=== PATIENT | male | born 1970 | race Caucasian/White ===

== ENCOUNTER 2022-09-28 17:31 | Inpatient (IN) | payer MEDICAID, SELFPAY ==
[2022-09-28] VITALS (8 sets, daily range): BP systolic 131–192; BP diastolic 57–110; PULSE 64–85; RESP 14–20; TEMP 36.8–38.2; O2SAT 94–98; BMI 32.6
--- NOTE | ~2022-09-28 | CT_ITS ---
EXAMINATION: CT ABDOMEN AND PELVIS WITH CONTRAST CLINICAL INFORMATION: Right flank pain, leukocytosis COMPARISON: None TECHNIQUE: Multidetector volumetric images were obtained from the superior aspect of the liver through the pubic symphysis following administration 85 mL of Omnipaque 350 intravenous contrast. Sagittal and coronal reformatted images were obtained on the technologist's workstation. Oral contrast: No This CT examination was performed using dose optimization techniques as appropriate, variously including the following: *Automated exposure control *Adjustment of mA and/or kV according to patient size (this includes techniques or standardized protocols for targeted exams where dose is matched to indication/reason for exam; i.e. extremities or head) *Use of iterative reconstruction technique DLP: 774 mGy-cm FINDINGS: LUNG BASES: Minor scarring or discoid atelectasis right base. More medially, there is more focal peribronchial consolidation which is nonspecific and may be chronic as well. Difficult to exclude minor pneumonia. LIVER, GALLBLADDER, AND BILIARY TREE: Changes of diffuse hepatic steatosis. No discrete lesion. Hepatic and portal vessels patent. No biliary ductal dilatation. The gallbladder is unremarkable with no evidence of radiopaque gallstones, gallbladder wall thickening, or obvious pericholecystic inflammatory changes. PANCREAS: Unremarkable. SPLEEN: Unremarkable. ADRENAL GLANDS: Unremarkable. KIDNEYS AND URETERS: The kidneys are normal in size, shape, and attenuation. No hydronephrosis, hydroureter, or calculi seen. No perinephric stranding. BLADDER: Unremarkable. GASTROINTESTINAL TRACT: Acute inflammatory changes at the level the appendix with hyperenhancement of the appendiceal wall, periappendiceal inflammatory changes and wall thickening or dilatation. No appendicolith or evidence for any perforation. No bowel abnormality otherwise. No free fluid. ABDOMINAL WALL: No significant hernia is appreciated. LYMPH NODES: Normal. VASCULAR: Unremarkable. PELVIC VISCERA: Unremarkable. OSSEOUS STRUCTURES: Unremarkable. CT/CT abdomen pelvis w IV con IMPRESSION: Acute uncomplicated appendicitis. Diffuse hepatic steatosis. Right lower lobe changes as above. Fleischner guidelines were followed.
[2022-09-28 18:06] LABS: Hematocrit 44.7 % (42.0-52.0); Hemoglobin 15.1 g/dl (14.0-18.0); Mean Corpuscular HGB Conc 33.8 g/dl (31.0-36.0); Mean Corpuscular Hemoglobin 28.3 pg (27.0-33.0); Mean Corpuscular Volume 83.9 fL (80.0-98.0); Mean Platelet Volume 9.5 fL (9.4-12.4); Platelet Count 293 X10*3/uL (160-400); Red Blood Count 5.33 X10*6/uL (4.60-5.80); Red Cell Distribution Width 12.9 % (11.0-16.0)
--- OUTSIDE RECORDS SUMMARY | 2022-09-28 18:07 | XMS_ITS ---
:1970 Author Allergies Code Code System Name Reaction Severity Status Onset NKDA ? Medications No Medications Reported Problems Name Status Onset Date Source ? Urinary Symptoms Active ? Encounter Glycosuria Active ? Encounter Procedures None recorded. Results Lab Results None recorded. Past Encounters None recorded. Social History Tobacco Smoking Status Never Smoker Vaccine List None recorded. Plan of Care Reminders Provider Appointments None recorded. ? ? Lab None recorded. ? ? Referral None recorded. ? ? Procedures None recorded. ? ? Surgeries None recorded. ? ? Imaging None recorded. ? ? Vitals Height Weight BMI Blood Pressure 70 ft 108 kg 0.2 kg/m2 135/70 mm[Hg]
--- NOTE | 2022-09-28 18:22 | ED.GENADULT ---
HPI - General Adult General Chief complaint: Abdominal Pain Stated complaint: lower right side back pain, vomiting blood Time Seen by Provider: 09/28/22 18:22 Source: patient Mode of arrival: ambulatory Limitations: no limitations History of Present Illness HPI narrative: This is a 52-year-old male with no significant past medical history presenting to the emergency department with complaints of severe right-sided flank pain w/ radiation to abdomen that started this morning when he woke up, also associated complaints include urinary frequency and dysuria. Patient tells me this is never happened to him before. He tells me he tried going to work and the pain was so severe he could not even stand upright. He tells me the pain is sharp, 10/10. Reporting subjective fevers and chills as well as nausea. No vomiting. Patient has no history of kidney stones. Upon history taking patient appears extremely uncomfortable. Denies chest pain, shortness of breath, vomiting, hematemesis, hematochezia, weakness, headache, vision changes and dizziness. Related Data Allergies Allergy/AdvReac Type Severity Reaction Status Date / Time Unable to Assess Allergy Unverified 09/28/22 18:15 Review of Systems Review of Systems: Constitutional : No Weight loss, + Fever, + Chills, + Fatigue, + Malaise ENT/Mouth : No sore throat, No Rhinorrhea Eyes: No Eye Pain, No Swelling, No Redness Cardiovascular : No Chest Pain, No SOB, No Dyspnea on Exertion, No Orthopnea, No Edema, No Palpitations Respiratory : No Cough, No Sputum, No Wheezing Gastrointestinal : No Nausea, No Vomiting, No Diarrhea, No Constipation, No abdominal Pain, No Hematochezia, No Melena Genitourinary : + Dysuria, + Urinary Frequency, No Hematuria, Musculoskeletal : No joint pain, No Myalgias, No Joint Swelling, + flank pain Skin : No Skin Lesions, No rash Neuro : No Weakness, No Numbness, No Dizziness, No Headache Psych : No Anxiety/Panic, No Depression All other systems reviewed and are negative Yes all other systems are reviewed and are negative [facility] Past Medical History Attestation statement: The following information was validated with the patient. Source: old records reviewed and nursing notes reviewed Social History Social History Advance Directives: No Advance Directives Information Provided: No Physical Exam ED Vital Signs: Vital Signs - 24 hr 09/28/22 17:37 Temperature 100.8 F H Pulse Rate 85 Respiratory Rate 20 Blood Pressure 192/110 H Pulse Oximetry 98 Oxygen Delivery Method Room Air BMI result Body Mass Index 32.6 Patient noted to be febrile, Tylenol ordered. Patient is very hypertensive likely secondary to severe pain Appearance: Alert.? Oriented X3.? No acute distress.? Patient appears extremely uncomfortable Head: Normocephalic, atraumatic, no step-offs or deformities Eyes: Pupils equal, round and reactive to light.? ENT: Pharynx normal.? Neck: Normal inspection.? Neck supple.? CVS: Normal heart rate and rhythm.? Pulses normal.? Respiratory: No respiratory distress.? Breath sounds normal.? Abdomen: Soft and nontender.? Skin: Skin warm and dry.? Normal skin color.? Normal skin turgor.? Extremities: No lower extremity edema.? No calf ttp. 5/5 strength to bilateral upper and lower extremities Back: No midline tenderness, no C-spine tenderness, full range of motion, positive right-sided CVA tenderness Neuro: Oriented X 3.? No motor deficit.? No sensory deficit. CN 2-12 intact Course Reevaluation(s) Reevaluation #1: CBC with leukocytosis, chemistry no acute electrolyte abnormalities requiring intervention. Lactic acid negative. Patient was given fluids, levofloxacin. CT of the abdomen and pelvis showing acute appendicitis. Surgery consulted. Urine pending. Time: 20:13 Medications Administered Discontinued Medications Generic Name Dose Route Start Last Admin Trade Name Freq PRN Reason Stop Dose Admin Acetaminophen 975 mg 09/28/22 18:23 09/28/22 18:31 Acetaminophen 325 Mg Tablet PO 09/28/22 18:24 975 mg ONCE ONE Administration Sodium Chloride 2,925.66 mls @ 2,925.66 mls/hr 09/28/22 18:16 09/28/22 18:31 Ns 30 ml/kg infuse over 1 hr (2925.66 ml) 09/28/22 19:15 2,925.66 mls/hr IV Administration .Q1H STA Levofloxacin 750 mg in 150 mls @ 100 mls/hr 09/28/22 18:16 09/28/22 18:34 Levaquin IV 09/28/22 19:45 100 mls/hr ONCE ONE Administration Iohexol 100 ml 09/28/22 19:23 09/28/22 19:23 Iohexol 350 Mg/Ml 100 Ml Infus..Btl IV 09/28/22 19:24 85 ml ONCE ONE Administration Morphine Sulfate 4 mg 09/28/22 18:22 09/28/22 18:30 Morphine Sulfate 4 Mg/Ml Cartridge IVPUSH 09/28/22 18:23 4 mg ONCE ONE Administration Protocol Ondansetron HCl 4 mg 09/28/22 18:23 09/28/22 18:30 Ondansetron Hcl 4 Mg/2 Ml Vial IVPUSH 09/28/22 18:24 4 mg ONCE ONE Administration Medical Decision Making Medical Decision Making [facility] Narrative: 1814 52-year-old male presents with right-sided flank pain severe, 10/10, fevers, chills. Started this morning. Physical examination with significant right-sided CVA tenderness. Remainder of exam unremarkable. Patient is noted to be febrile, Tylenol ordered. Patient also noted to be hypertensive likely secondary to severe pain. Morphine will be ordered for pain control. Concerns for pylo or intraabdominal etiologies. Sepsis alert called immediately when patient was brought to room. Blood cultures, lactic acid, basic labs, 30 cc/kilos bolus. As well as Levaquin ordered for suspected pyelonephritis. Plan at this time labs, urine, CT of the abdomen and pelvis, pain control, Zofran for nausea, fluids. At time of patient's arrival sepsis focused exam was done. Critical Care Time Critical Care Time Critical Care Time: Yes Total Critical Care Time: 35 Attestation: I attest to this time spent taking care of the patient, obtaining history, physical, reviewing labs, imaging, speaking to my attending, speaking to specialist. Discharge Plan Discharge Clinical Impression: Acute appendicitis Patient Disposition: Admitted As Inpatient
[2022-09-28 18:29] LABS: Anion Gap 15 (12-20); Blood Urea Nitrogen 23 mg/dL (9-16); Calcium 9.7 mg/dL (8.4-10.2); Carbon Dioxide 24 mmol/L (22-29); Chloride 106 mmol/L (96-108); Creatinine Clr Calc Pharmacy 89.9; Estimated Glomerular Filt Rate > 60; Glucose Random 247 mg/dL (60-115); Lipase 37 U/L (8-78); Potassium 4.3 mmol/L (3.3-5.1); Sodium 141 mmol/L (135-145)
[2022-09-28] MEDS: Morphine Sulfate 4 MG/ML CARTRIDGE IVPUSH (18:30)
[2022-09-28] MEDS: ondansetron HCL 4 MG/2 ML VIAL IVPUSH (18:30)
[2022-09-28] MEDS: Acetaminophen 325 MG TABLET 975 MG PO (18:31)
[2022-09-28] MEDS: 0.9 % Sodium Chloride 2,925.66 ML 2925.66 ML IV (18:31)
[2022-09-28] MEDS: levoFLOXacin/D5W 750 MG/150 ML PIGGYBACK 100 MG IV (18:34)
[2022-09-28] MEDS: iohexoL 350 MG/ML 100 ML INFUS..BTL IV (19:23)
--- NOTE | 2022-09-28 20:28 | P.HPGS_ITS ---
History of Present Illness History of Present Illness Date of Service: 09/29/22 Chief complaint: acute appendicitis Narrative: Driss Hicks is a 52 year old male with complaints of abdominal pain in the right lower quadrant and flank which began yesterday morning. 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 The pain became very severe and he had the Police bring him to the emergency department. he reports a previous episode of similar pain 1 month ago which required admission to the hospital. This was treated non operatively with antibiotics and after 2 days he was discharged home on oral antibiotics. He remained pain-free until yesterday when the same pain returned. He reports fever and chills as well as nausea but denies vomiting, diarrhea, constipation, or bloody stools. Workup in the emergency department revealed an elevated WBC and CT was suggestive of acute appendicitis. He is admitted to the surgical service for further management of this recurrent acute appendicitis. Review of Systems Review of Systems: Yes all other systems are reviewed and are negative Constitutional: Constitutional: Reports chills, Reports fever(s), Denies headache(s), Denies poor appetite and Denies weakness ENT: Denies headache(s) Cardiovascular: Cardiovascular: Denies chest pain, Denies irregular heart rhythm, Denies palpitations and Denies dyspnea Respiratory: Respiratory: Denies cough, Denies excessive phlegm production and Denies dyspnea Gastrointestinal: Gastrointestinal: Reports abdominal pain, Denies bloating, Denies change in bowel habits, Denies constipation, Denies heartburn, Denies diarrhea, Reports nausea and Denies vomiting Genitourinary: Genitourinary: Denies difficulty urinating and Denies urinary frequency Musculoskeletal: Musculoskeletal: Denies back pain, Denies muscle weakness and Denies numbness Integumentary/Breasts: Skin/Breast: Denies changing lesions and Denies unusual bruising Neurologic: Denies headache(s), Denies numbness, Denies paresthesias and Denies weakness Psychiatric: Psychiatric: Denies anxiety and Denies depression Endocrine: Endocrine: Denies palpitations Hematologic/Lymphatic: Hematologic/Lymphatic: Denies lymphadenopathy [facility] Past Medical History Medical History Diabetes mellitus type 2 in nonobese Hypertension Social History Social History Alcohol intake: never Smoked in Last 30 Days: No Use of substances other than those prescribed or required for medical reasons: No Advance Directives: No Advance Directives Information Provided: No Meds Allergies Allergy/AdvReac Type Severity Reaction Status Date / Time Unable to Assess Allergy Unverified 09/28/22 18:15 Home Medications Medication Instructions Recorded Confirmed Last Taken Type aspirin 81 mg tablet,delayed 1 tab PO DAILY 09/29/22 09/29/22 Unknown History release losartan 25 mg tablet 1 tab PO DAILY 09/29/22 Unknown History metformin 500 mg tablet 1 tab PO BID 09/29/22 Unknown History Physical Exam Vital Signs: Vital Signs: Last Vital Signs Temp 100.8 F H 09/28/22 17:37 Pulse 85 09/28/22 17:37 Resp 20 09/28/22 17:37 BP 192/110 H 09/28/22 17:37 Pulse Ox 98 09/28/22 17:37 O2 Del Method 09/28/22 17:37 BMI result Body Mass Index 32.6 Const: General: cooperative and no acute distress Nutritional Appearance: w ell nourished Orientation/consciousness: patient oriented x3 Limitations: no limitations HEENT: Head: Yes normocephalic and Yes atraumatic Ears: hearing grossly normal bilaterally Resp: Effort & Inspection: normal respiratory effort, no audible wheezes, no cough and no respiratory distress Cardio: Jugular venous distension: no JVD GI: Inspection: Yes normal to inspection Palpation (GI): Soft to palpation, Tenderness to palpation present (GI) in the RLQ and at McBurney's point, no guarding and not rigid Percussion: Yes normal to percussion Auscultation: normal bowel sounds Rectal Exam - Male: Yes deferred Skin: Other: Warm, dry, no rash Neuro: General: patient oriented x3 Extrem: General: Yes no clubbing, cyanosis or edema Results Results Labs: Short CBC 09/28/22 Range/Units 18:01 WBC 16.0 H (4.8-10.8) X10*3/uL Hgb 15.1 (14.0-18.0) g/dl Hct 44.7 (42.0-52.0) % Plt Count 293 (160-400) X10*3/uL BMP 09/28/22 18:01 Sodium 141 Potassium 4.3 Chloride 106 Carbon Dioxide 24 BUN 23 H Creatinine 1.10 Calcium 9.7 Assessment and Plan (1) Acute appendicitis: Status: Acute Plan 52-year-old male presenting with complaints of right lower quadrant pain. He was previously diagnosed with acute appendicitis and treated non operatively with antibiotics. He reports similar symptoms this time and does feel improved after antibiotics. Because of the recurring nature of the symptoms though, I would recommend proceeding to a laparoscopic or possible open appendectomy. I reviewed the procedure, risks, and alternatives of laparoscopic or possible open appendectomy he gives his full consent. He will be added onto the operative schedule for today. Time Spent With Patient Time: Total time managing care of this patient today ____ minutes. Quality Stroke Does the patient have a stroke diagnosis?: No VTE Prior VTE?: No VTE Risk Level:: Surgical - moderate VTE Device Contraindication: N/A - Device Ordered VTE Drug Contraindication: Treatment Not Indicated Procedures Date of Service Date of Service: 09/29/22
[2022-09-28] MEDS: Piperacillin Sodium/Tazobactam 3.375 GM in 0.9 % Sodium Chloride 50 ML IV (20:48)
[2022-09-28] MEDS: diphenhydrAMINE HCL 50 MG/ML VIAL 25 MG IVPUSH (21:15)
[2022-09-28] MEDS: Acetaminophen 1,000 MG/100 ML PIGGYBACK 400 MG IV (21:16)
--- NOTE | 2022-09-28 21:16 | PC.NURSE ---
Pt complaining of itchiness and hives after zosyn administration. Provider aware and benadryl administered. Will continue to monitor.
[2022-09-28 21:29] LABS: Appearance Urine Clear; Color Urine Yellow; Glucose Urine UA 500 mg/dL (Negative); Leukocyte Esterase Urine Negative (Negative); Nitrite Urine Negative (Negative); PH 6.5 (5.0-9.0); Specific Gravity - Urine >= 1.030 (1.005-1.025); Urine Blood Negative (Negative); Urine Ketones Negative (Negative); Urine Protein Negative (Neg-Trace)
[2022-09-28] MEDS: metroNIDAZOLE/NS 500 MG/100 ML PIGGYBACK 100 MG IV (21:53)
[2022-09-28 22:31] LABS: Lactic Acid 0.9 mmol/L (0.5-2.0)
[2022-09-28 22:33] LABS: COVID-19 Test Negative (Negative)
[2022-09-28] MEDS: Dextrose 5 % and Lactated Ring 1,000 ML 125 ML IVCONT (23:35)
[2022-09-29] VITALS (9 sets, daily range): BP systolic 123–167; BP diastolic 63–91; PULSE 53–82; RESP 12–20; TEMP 36.3–37.4; O2SAT 90–97; BMI 37.3
[2022-09-29] MEDS: Acetaminophen 1,000 MG/100 ML PIGGYBACK 400 MG IV ×2 (02:07→08:28)
--- NOTE | 2022-09-29 02:11 | PC.NURSE ---
Pt resting comfortably at this time, stated he feels much better. Pt is aware that he is now NPO. Pt complains of no pain at this time
[2022-09-29] MEDS: metroNIDAZOLE/NS 500 MG/100 ML PIGGYBACK 100 MG IV (05:06)
--- NOTE | 2022-09-29 05:14 | PC.NURSE ---
Pt asleep comfortably. D5LR delayed due to previous fluids running late. I called pharmacy to have the maintenance fluid schedule updated to reflect accurate times.
--- NOTE | 2022-09-29 08:17 | PHA.MEDREC ---
Pharmacy Consult ? Medication Reconciliation Pharmacy has completed the medication reconciliation.
--- NOTE | 2022-09-29 08:19 | PC.NURSE ---
patient a/ox4 . pearrla . heart rate regular at 58 beats per minute . breathing even and unlabored lungs clear throughout . skin warm and dry . abdomen distended . rebound tenderness noted right side / flank area .pain level 2 out of 10 patient ambulated to bathroom by self . patient remains NPO . patient aware of plan of care for surgery today .
--- NOTE | 2022-09-29 08:23 | PC.NURSE ---
this rn confirmed with pharmacist (nilam) about apap 1gm dosing within 24hr. 1gm dosing is ok to give and rn needs to re-evaluate for next dosing.
[2022-09-29 08:30] LABS: MANUAL DIFF FLAG NO
[2022-09-29] MEDS: 0.9 % Sodium Chloride Flush 3 ML SYRINGE IVFLUSH ×3 (08:32→20:26)
--- NOTE | 2022-09-29 08:40 | PC.NURSE ---
Report Given to OR nurse . Patient ready for transport .
[2022-09-29 08:44] LABS: Basophils Percent Auto 0.3 % (0-2); Eosinophils Absolute Auto 0.2 X10*3/uL (0.0-0.4); Eosinophils Percent Auto 2.3 % (0-4); Hematocrit 43.2 % (42.0-52.0); Hemoglobin 14.2 g/dl (14.0-18.0); Imm Gran Abs Auto 0.03 X10*3/uL (0.00-0.03); Imm Gran Pct Auto 0.3 % (0.0-0.4); Lymphocytes Absolute Auto 2.6 X10*3/uL (1.2-4.9); Lymphocytes Percent Auto 29.2 % (20-40); Mean Corpuscular HGB Conc 32.9 g/dl (31.0-36.0); Mean Corpuscular Volume 85.2 fL (80.0-98.0); Mean Platelet Volume 9.3 fL (9.4-12.4); Monocytes Absolute Auto 0.8 X10*3/uL (0.1-1.2); Monocytes Percent Auto 8.6 % (2-11); Neutrophils Absolute Auto 5.2 x10*3/uL (2.0-8.3); Neutrophils Percent Auto 59.3 % (45-73); Platelet Count 246 X10*3/uL (160-400); Red Blood Count 5.07 X10*6/uL (4.60-5.80); Red Cell Distribution Width 13.1 % (11.0-16.0); White Blood Count 8.8 X10*3/uL (4.8-10.8)
[2022-09-29] MEDS: Dextrose 5 % and Lactated Ring 1,000 ML 125 ML IVCONT (08:44)
--- NOTE | 2022-09-29 08:59 | HO.ANESPROP2 ---
[facility] Active Problems Active Problems: All Active Problems (Updated 09/29/22 @ 07:52 by Gallo Grant MD) Hypertension (Acute) Diabetes mellitus type 2 in nonobese (Acute) Acute appendicitis (Acute) Past Medical History Medical History Diabetes mellitus type 2 in nonobese Hypertension Family History Family history of problems with anesthesia: No Surgical History History of Problems with Anesthesia: No Social History Social History Alcohol intake: never Smoked in Last 30 Days: No Use of substances other than those prescribed or required for medical reasons: No Advance Directives: No Advance Directives Information Provided: No Meds Allergies Allergy/AdvReac Type Severity Reaction Status Date / Time piperacillin Allergy Mild Rash Verified 09/29/22 07:58 Zosyn Allergy Mild Rash Uncoded 09/29/22 07:57 Active Medications: Current Medications Hydromorphone HCl (Hydromorphone Hcl 0.5 Mg/0.5 Ml Syringe) 0.5 mg IVPUSH Q3H PRN; Protocol PRN Reason: Pain, Severe (Pain Scale 7-10) Acetaminophen (Ofirmev) 1,000 mg in 100 mls @ 400 mls/hr IV Q6H [facility] Stop: 09/29/22 14:44 Last Admin: 09/29/22 08:28 Dose: 400 mls/hr Levofloxacin (Levaquin) 500 mg in 100 mls @ 100 mls/hr IV Q24H TREY Metronidazole (Flagyl) 500 mg in 100 mls @ 100 mls/hr IV Q8H [facility] Last Infusion: 09/29/22 07:20 Dose: Infused Dextrose/Lactated Ringer's (D5lr) 1,000 mls @ 125 mls/hr IVCONT .Q8H [facility] Last Admin: 09/29/22 08:44 Dose: 125 mls/hr Ondansetron HCl (Ondansetron Hcl 4 Mg/2 Ml Vial) 4 mg IVPUSH QID PRN PRN Reason: Nausea Oxycodone HCl (Oxycodone Hcl Immed Release 5 Mg Tablet) 5 mg PO Q6H PRN PRN Reason: Pain, Moderate (Pain Scale 4-6 Sodium Chloride (0.9 % Sodium Chloride Flush 3 Ml Syringe) 3 ml IVFLUSH QSHIFT TREY Last Admin: 09/29/22 08:32 Dose: 3 ml Zolpidem Tartrate (Zolpidem Tartrate 5 Mg Tablet) 5 mg PO BEDTIME PRN PRN Reason: Insomnia Home Medications Medication Instructions Recorded Confirmed Last Taken Type losartan 25 mg tablet 1 tab PO DAILY 09/29/22 09/29/22 09/28/22 History metformin 500 mg tablet 1 tab PO BID 09/29/22 09/29/22 09/28/22 History Exam Exam Date and Time: September 29, 2022 0859 Height,Weight and Vital Signs: Height 5 ft 8 in Weight 97.522 kg Last Vital Signs Temp 97.8 F 09/29/22 07:20 Pulse 57 09/29/22 07:20 Resp 16 09/29/22 07:20 BP 133/63 09/29/22 07:20 Pulse Ox 94 09/29/22 07:20 O2 Del Method 09/29/22 07:20 Pertinent Lab Results Pertinent Lab Results: Laboratory Tests 09/28/22 09/28/22 09/28/22 18:01 18:01 18:29 WBC 16.0 H RBC 5.33 Hgb 15.1 Hct 44.7 MCV 83.9 MCH 28.3 MCHC 33.8 RDW 12.9 Plt Count 293 MPV 9.5 Immature Gran % (Auto) Neut % (Auto) Lymph % (Auto) [place] % (Auto) Eos % (Auto) Baso % (Auto) Lymph # (Auto) Parmer # (Auto) Eos # (Auto) Baso # (Auto) Abs Immat Gran (auto) Absolute Neuts (auto) Absolute Nucleated RBC 0.000 Nucleated RBC % (auto) 0.0 Sodium 141 Potassium 4.3 Chloride 106 Carbon Dioxide 24 Anion Gap 15 BUN 23 H Creatinine 1.10 Estim Creat Clear Calc 89.9 Estimated GFR > 60 Random Glucose 247 H Lactic Acid 2.0 Calcium 9.7 Lipase 37 Urine Color Urine Appearance Urine pH Ur Specific [place] Urine Protein Urine Glucose (UA) Urine Ketones Urine Blood Urine Nitrite Ur Leukocyte Esterase COVID-19 (DIANNE) COVID-19 Clin Com 09/28/22 09/28/22 09/28/22 21:10 21:19 22:16 WBC RBC Hgb Hct MCV MCH MCHC RDW Plt Count MPV Immature Gran % (Auto) Neut % (Auto) Lymph % (Auto) [place] % (Auto) Eos % (Auto) Baso % (Auto) Lymph # (Auto) Parmer # (Auto) Eos # (Auto) Baso # (Auto) Abs Immat Gran (auto) Absolute Neuts (auto) Absolute Nucleated RBC Nucleated RBC % (auto) Sodium Potassium Chloride Carbon Dioxide Anion Gap BUN Creatinine Estim Creat Clear Calc Estimated GFR Random Glucose Lactic Acid 0.9 Calcium Lipase Urine Color Yellow Urine Appearance Clear Urine pH 6.5 Ur Specific [place] >= 1.030 H Urine Protein Negative Urine Glucose (UA) 500 H Urine Ketones Negative Urine Blood Negative Urine Nitrite Negative Ur Leukocyte Esterase Negative COVID-19 (DIANNE) Negative COVID-19 Tykli Com See Note 09/29/22 08:25 WBC 8.8 RBC 5.07 Hgb 14.2 Hct 43.2 MCV 85.2 MCH 28.0 MCHC 32.9 RDW 13.1 Plt Count 246 MPV 9.3 L Immature Gran % (Auto) 0.3 Neut % (Auto) 59.3 Lymph % (Auto) 29.2 [place]mer % (Auto) 8.6 Eos % (Auto) 2.3 Baso % (Auto) 0.3 Lymph # (Auto) 2.6 [place]mer # (Auto) 0.8 Eos # (Auto) 0.2 Baso # (Auto) 0.0 Abs Immat Gran (auto) 0.03 Absolute Neuts (auto) 5.2 Absolute Nucleated RBC 0.000 Nucleated RBC % (auto) 0.0 Sodium Potassium Chloride Carbon Dioxide Anion Gap BUN Creatinine Estim Creat Clear Calc Estimated GFR Random Glucose Lactic Acid Calcium Lipase Urine Color Urine Appearance Urine pH Ur Specific [place] Urine Protein Urine Glucose (UA) Urine Ketones Urine Blood Urine Nitrite Ur Leukocyte Esterase COVID-19 (DIANNE) COVID-19 Clin Com Airway Mallampati Class: II TM Dist: >3cm Neck ROM: Full Assessment and Plan Assessment Anesthesia Assessment: Anesthesia Plan Discussed and Chart Reviewed Final Anesthetic Review Family History of Problems with Anesthesia: No History of Problems with Anesthesia: No NPO: Yes ASA Class: II and Emergency Final Preanesthetic Review: No Changes in Pt Med Stat, Meds/Allgs Chart Reviewed, Consent Obtained/Reviewed and Anes Risks/Benef Reviewed Patient Risk: Intermediate Procedure Risk: Low Anesthetic Plan Anesthetic Plan: GA Disposition: Standard PACU
--- NOTE | 2022-09-29 09:01 | PC.NURSE ---
Report given to Junior DeL eón . patient aware of plan of care to transport after surgery to floor .
--- NOTE | 2022-09-29 10:14 | W.PM.OPN ---
Operative Note Operative Note Date of Service: 09/29/22 Narrative: Preoperative diagnosis: Acute appendicitis Postoperative diagnosis: Same Procedure: Laparoscopic appendectomy Surgeon: Gallo Grant MD Air Conditioning Engineer:none Anesthesia: General endotracheal Indications for procedure:52 year old male with right lower quadrant pain found to have tenderness in the RLQ, elevated WBC and CT findings consistent with acute appendicitis Operative findings: acute appendicitis with significant surrounding phlegmon but without perforation or abscess. Small amount of turbid fluid was identified. Specimen:appendix Estimated blood loss:2 mls Complications: none Procedure details: Patient was brought to the OR and placed in a supine position. After administering general anesthesia the patient's abdomen was prepped with ChloraPrep and draped in a sterile fashion. A surgical time-out was called and consent confirmed. Patient received preoperative antibiotics and Venodyne boots were in place. Local anesthesia consisting of 0.75% Sensorcaine with epinephrine was infiltrated in periumbilical region. A 5 mm incision was made below the umbilicus and carried down through subcutaneous tissue. A Veress needle was then inserted while elevating abdominal cavity with towel clips. After a positive drop test the abdomen was insufflated to a pressure of 15 mm of mercury. The Veress needle was removed and a 5 mm trocar inserted. The camera was then inserted in the abdomen explored. A 2nd 5 mm trocars placed in the lower midline. A 12 mm trocar was then placed in the left lower quadrant. The patient was then placed in a Trendelenburg position and rotated to the left. The appendix was identified in the right lower quadrant and brought up using blunt dissecting clamps. The mesentery of the appendix was then divided using the LigaSure. The appendiceal artery was cauterized and divided using the LigaSure. Dissection was continued down to the base of the cecum. An Endo-SURJIT stapler with a purple reload was then used to divide the appendix at the base with the cecum. The appendix was then placed in Endo-Catch bag and brought out through the left lower quadrant incision. The abdomen was then irrigated with saline solution and suctioned dry. Wounds were checked for hemostasis. CO2 was then evacuated from the abdominal cavity and all trocars removed. Fascia was closed in the left lower quadrant incision using a [id number] 0 Polysorb suture. Skin was closed at all incisions using a subcuticular 4-0 Polysorb suture. Steri-Strips 2 x 2 gauze and Tegaderm were then applied. The patient tolerated the procedure well. Sponge, instrument, needle counts reported as correct. The patient was transferred to PACU in stable condition.
[2022-09-29 11:51] LABS: Glucose, Whole Blood 171 mg/dL (60-115)
[2022-09-29] MEDS: HYDROmorphone HCl 0.5 MG/0.5 ML SYRINGE IVPUSH ×3 (12:51→20:25)
[2022-09-29] MEDS: oxyCODONE HCl Immed Release 5 MG TABLET PO (14:46)
[2022-09-29 16:22] LABS: Glucose, Whole Blood 239 mg/dL (60-115)
[2022-09-29 19:26] LABS: Glucose, Whole Blood 238 mg/dL (60-115)
[2022-09-30] MEDS: oxyCODONE HCl Immed Release 5 MG TABLET PO ×2 (01:00→11:39)
[2022-09-30 04:00] VITALS: BP 137/73; PULSE 66; RESP 17; TEMP 36.6; O2SAT 94
[2022-09-30 07:19] VITALS: BP 135/65; PULSE 60; RESP 18; TEMP 35.9; O2SAT 95
[2022-09-30] MEDS: HYDROmorphone HCl 0.5 MG/0.5 ML SYRINGE IVPUSH ×2 (07:26→15:05)
[2022-09-30] MEDS: 0.9 % Sodium Chloride Flush 3 ML SYRINGE IVFLUSH ×3 (07:26→21:13)
[2022-09-30 07:32] LABS: Glucose, Whole Blood 145 mg/dL (60-115)
[2022-09-30] MEDS: Losartan Potassium 25 MG TABLET PO (08:51)
[2022-09-30] MEDS: metFORMIN HCl 500 MG TABLET PO ×2 (08:51→21:13)
--- NOTE | 2022-09-30 10:29 | HO.POSTANES ---
Post Anesthesia Evaluation Post Anesthesia Evaluation Vital Signs: Vital Signs Temp Pulse Resp BP Pulse Ox O2 Del Method 09/30/22 07:19 96.6 F L 60 18 135/65 95 Room Air 09/30/22 04:00 97.9 F 66 17 137/73 94 Room Air Anesthesia: General Endotracheal-GETA Mental Status: Awake Pain Control: Satisfactory Nausea/Vomiting: None Hydration: Adequate Anesthesia-Related Issues: No Anes. Related Issues
--- NOTE | 2022-09-30 10:34 | P.PNGS_ITS ---
Subjective Subjective Date of Service: 09/30/22 Interval history: Feels much better. Has some mild incisional pain but comfortable with analgesics. Tolerating solid diet. Wants to go home but also lives in [place] and will be driving himself. Physical Exam Vital Signs: Vital Signs: Last Vital Signs Temp 96.6 F L 09/30/22 07:19 Pulse 60 09/30/22 07:19 Resp 18 09/30/22 07:19 BP 135/65 09/30/22 07:19 Pulse Ox 95 09/30/22 07:19 O2 Del Method 09/30/22 07:19 O2 Flow Rate 2 09/29/22 11:00 BMI result Body Mass Index 37.3 Const: General: comfortable, no acute distress and alert O rientation/consciousness: patient oriented x3 Resp: Effort & Inspection: normal respiratory effort GI: Inspection: No distended and Yes incision (dressings c/d/i) Skin: General skin exam: no rashes or lesions noted Neuro: General: patient oriented x3 and moves all extremities Extrem: General: Yes no clubbing, cyanosis or edema Objective Data Active Medications Dextrose (Dextrose 50 % 25 Gm/50 Ml Syringe) 25 gm IVPUSH Q15M PRN; Protocol PRN Reason: per Hypoglycemia Standing Ord. Glucose (Glucose Gel 15 Gm Gel..Gram.) 15 gm PO Q15M PRN; Protocol PRN Reason: per Hypoglycemia Standing Ord. Hydromorphone HCl (Hydromorphone Hcl 0.5 Mg/0.5 Ml Syringe) 0.5 mg IVPUSH Q3H PRN; Protocol PRN Reason: Pain, Severe (Pain Scale 7-10) Last Admin: 09/30/22 07:26 Dose: 0.5 mg Documented By: BUBBA Insulin Human Lispro (Insulin Lispro 100 Unit/Ml 3 Ml Vial) 0 unit SUBCUT QIDACHS [facility]; Protocol Stop: 09/30/22 11:31 Last Admin: 09/30/22 07:20 Dose: Not Given Documented By: BUBBA Non-Admin Reason: Patient Refused Losartan Potassium (Losartan Potassium 25 Mg Tablet) 25 mg PO DAILY [facility]; Trevor col Last Admin: 09/30/22 08:51 Dose: 25 mg Documented By: BUBBA Metformin HCl (Metformin Hcl 500 Mg Tablet) 500 mg PO BID [facility] Last Admin: 09/30/22 08:51 Dose: 500 mg Documented By: BUBBA Ondansetron HCl (Ondansetron Hcl 4 Mg/2 Ml Vial) 4 mg IVPUSH QID PRN PRN Reason: Nausea Oxycodone HCl (Oxycodone Hcl Immed Release 5 Mg Tablet) 5 mg PO Q6H PRN PRN Reason: Pain, Moderate (Pain Scale 4-6 Last Admin: 09/30/22 01:00 Dose: 5 mg Documented By: SAURABHORALCal Sodium Chloride (0.9 % Sodium Chloride Flush 3 Ml Syringe) 3 ml IVFLUSH QSHIFT [facility] Last Admin: 09/30/22 07:26 Dose: 3 ml Documented By: BUBBA Zolpidem Tartrate (Zolpidem Tartrate 5 Mg Tablet) 5 mg PO BEDTIME PRN PRN Reason: Insomnia Labs CBC & Chem 7: 09/29/22 08:25 09/28/22 18:01 Labs: Laboratory Results - last 24 hr 09/29/22 09/29/22 09/29/22 11:47 15:46 18:50 POC Glucose 171 H 239 H 238 H 09/30/22 07:11 POC Glucose 145 H Microbiology Microbiology Results: Microbiology 09/28/22 18:33 Blood Culture - Preliminary Blood - Venous No growth after 24 hours. 09/28/22 18:29 Blood Culture - Preliminary Blood - Venous No growth after 24 hours. Procedures Date of Service Date of Service: 09/30/22 Progress Note: A&P Assessment and plan (1) Acute appendicitis: Status: Acute (2) S/P laparoscopic appendectomy: Status: Acute Plan 52 year old male admitted for acute appendicitis now POD #1 s/p lap appy. He is doing well post operatively. VSS. Abd exam benign with appropriate post op te nderness and intact dressings. He was instructed he cannot drive on narcotics and he therefore does not feel comfortable going home today. He will stay one more night inpatient as he has to drive himself home to [place]. Time Spent With Patient Time: Total time managing care of this patient today ____ minutes. Quality Stroke Does the patient have a stroke diagnosis?: No VTE Prior VTE?: No VTE Risk Level:: Surgical - moderate VTE Device Contraindication: N/A - Device Ordered VTE Drug Contraindication: Treatment Not Indicated
[2022-09-30 11:13] LABS: Glucose, Whole Blood 217 mg/dL (60-115)
--- NOTE | 2022-09-30 14:07 | MHC.CM.PN ---
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
[2022-09-30 16:14] VITALS: BP 174/81; PULSE 62; RESP 18; TEMP 36.8; O2SAT 95
[2022-09-30 16:22] LABS: Glucose, Whole Blood 134 mg/dL (60-115)
[2022-09-30 19:17] VITALS: BP 161/82; PULSE 66; RESP 14; TEMP 36.6; O2SAT 96
[2022-09-30 20:13] LABS: Glucose, Whole Blood 206 mg/dL (60-115)
[2022-10-01] MEDS: oxyCODONE HCl Immed Release 5 MG TABLET PO (02:04)
[2022-10-01 03:56] VITALS: BP 134/74; PULSE 67; RESP 16; TEMP 36.9; O2SAT 95
[2022-10-01 07:03] VITALS: BP 164/77; PULSE 72; RESP 18; TEMP 36.1; O2SAT 94
[2022-10-01 08:03] LABS: Glucose, Whole Blood 141 mg/dL (60-115)
--- NOTE | 2022-10-01 08:04 | PM.PNGS ---
Subjective Subjective Date of Service: 10/01/22 Interval history: Feels well this morning. Pain is minimal. Tolerating solid diet. OOB without difficulty. Wants to go home. Physical Exam Vital Signs: Vital Signs: Last Vital Signs Temp 96.9 F 10/01/22 07:03 Pulse 72 10/01/22 07:03 Resp 18 10/01/22 07:03 BP 164/77 H 10/01/22 07:03 Pulse Ox 94 10/01/22 07:03 O2 Del Method 10/01/22 07:03 O2 Flow Rate 2 09/29/22 11:00 BMI result Body Mass Index 37.3 Const: General: comfortable, no acute distress and alert Resp: Effort & Inspection: normal respiratory effort Cardio: Rate: regular rate GI: Inspection: No distended, Yes incision (dressings c/d/i) and Yes obesity Palpation (GI): Soft to palpation, Tenderness to palpation present (GI) (mild, left port ), no guarding and not rigid Percussion: Yes normal to percussion Skin: General skin exam: no rashes or lesions noted Neuro: General: moves all extremities Objective Data Active Medications Dextrose (Dextrose 50 % 25 Gm/50 Ml Syringe) 25 gm IVPUSH Q15M PRN; Protocol PRN Reason: per Hypoglycemia Standing Ord. Glucose (Glucose Gel 15 Gm Gel..Gram.) 15 gm PO Q15M PRN; Protocol PRN Reason: per Hypoglycemia Standing Ord. Hydromorphone HCl (Hydromorphone Hcl 0.5 Mg/0.5 Ml Syringe) 0.5 mg IVPUSH Q3H PRN; Protocol PRN Reason: Pain, Severe (Pain Scale 7-10) Last Admin: 09/30/22 15:05 Dose: 0.5 mg Losartan Potassium (Losartan Potassium 25 Mg Tablet) 25 mg PO DAILY [facility]; Protocol Last Admin: 09/30/22 08:51 Dose: 25 mg Documented By: BUBBA Metformin HCl (Metformin Hcl 500 Mg Tablet) 500 mg PO BID [facility] Last Admin: 09/30/22 21:13 Dose: 500 mg Documented By: ANJANA Ondansetron HCl (Ondansetron Hcl 4 Mg/2 Ml Vial) 4 mg IVPUSH QID PRN PRN Reason: Nausea Oxycodone HCl (Oxycodone Hcl Immed Release 5 Mg Tablet) 5 mg PO Q6H PRN PRN Reason: Pain, Moderate (Pain Scale 4-6 Last Admin: 10/01/22 02:04 Dose: 5 mg Documented By: ANJANA Sodium Chloride (0.9 % Sodium Chloride Flush 3 Ml Syringe) 3 ml IVFLUSH QSHIFT [facility] Last Admin: 09/30/22 21:13 Dose: 3 ml Documented By: ANJANA Zolpidem Tartrate (Zolpidem Tartrate 5 Mg Tablet) 5 mg PO BEDTIME PRN PRN Reason: Insomnia Labs CBC & Chem 7: 09/29/22 08:25 09/28/22 18:01 Labs: Laboratory Results - last 24 hr 09/30/22 09/30/22 09/30/22 10:59 16:16 19:21 POC Glucose 217 H 134 H 206 H 10/01/22 07:08 POC Glucose 141 H Microbiology Microbiology Results: Microbiology 09/28/22 18:33 Blood Culture - Preliminary Blood - Venous No growth after 48 hours. 09/28/22 18:29 Blood Culture - Preliminary Blood - Venous No growth after 48 hours. Procedures Date of Service Date of Service: 10/01/22 Progress Note: A&P Assessment and plan (1) S/P laparoscopic appendectomy: Status: Acute (2) Acute appendicitis: Status: Acute (3) Obesity: Status: Acute Plan 52 year old male admitted with acute appendicitis with phlegmon POD #2 s/p lap appy. He is doing well post op- comfortable, tolerating solid diet. Abd remains benign with appropriate post op tenderness and clean/intact dressings. He feels ready and is stable for discharge to home. He will follow up in [address] Grant in office. Time Spent With Patient Time: Total time managing care of this patient today ____ minutes. Quality Stroke Does the patient have a stroke diagnosis?: No VTE Prior VTE?: No VTE Risk Level:: Surgical - moderate VTE Device Contraindication: N/A - Device Ordered VTE Drug Contraindication: Treatment Not Indicated
--- NOTE | 2022-10-01 08:46 | MHC.CM.PN ---
DP: PT MEDICALLY CLEARED FOR DISCHARGE HOME, NO SERVICES. LIVES IN [place], HAS CAR IN LOT. WILL DRIVE SELF.
--- NOTE | 2022-10-02 08:53 | PM.DS ---
DS: Providers Provider Date of Service: 10/01/22 Date of admission: 09/28/22 20:22 Primary care physician: Unknown Physician Attending physician on admission: Gallo Grant Consults: 09/28/22 20:14 Consult to General Surgery Stat Consulting Provider: Gallo Grant Reason for consultation: appendicitis Attending physician on discharge: Gallo Grant DS: Diagnosis Discharge Diagnosis (1) S/P laparoscopic appendectomy: Status: Acute (2) Acute appendicitis: Status: Acute (3) Obesity: Status: Acute DS: Summary Hospital Course Hospital Course: BRIEF HPI FROM DAY OF ADMISSION: Driss Hicks is a 52 year old male with complaints of abdominal pain in the right lower quadrant and flank which began yesterday morning. 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 The pain became very severe and he had the police bring him to the emergency department. he reports a previous episode of similar pain 1 month ago which required admission to the hospital. This was treated non operatively with antibiotics and after 2 days he was discharged home on oral antibiotics. He remained pain-free until yesterday when the same pain returned. He reports fever and chills as well as nausea but denies vomiting, diarrhea, constipation, or bloody stools. Workup in the emergency department revealed an elevated WBC and CT was suggestive of acute appendicitis. HOSPITAL COURSE: He was admitted to the surgical service for further management of this recurrent acute appendicitis. Because of the recurring appendicitis, it was recommended to proceed to a laparoscopic or possible open appendectomy. He agreed and was added onto the operative schedule for that day. On 12, a laparoscopic appendectomy was performed by Dr. Gallo Grant without complication. He was found to have a significant phlegmon but without perforation or abscess and a small amount of turbid fluid was identified.?He tolerated the procedure well and was transferred back to the medical/surgical floor for observation. He had an uncomplicated recovery course. On POD #1, he felt well and was comfortable with PO analgesics and tolerating a solid diet. He was out of bed and ambulating without difficulty. He had a benign abdominal exam with appropriate post op tenderness and clean dressings. He was kept one more night inpatient as he lives in [place] and had to drive himself home and did not feel like he was able to do so without analgesics that day. On POD #2, he felt improved and ready for discharge. He was discharged to home on 10/01/22 in stable condition. He is to follow up in the office with Dr. Grant in 2 weeks. He was again instructed on no heavy lifting or driving while taking narcotics. Status at Discharge Functional status at discharge: independent ambulation Overall status at discharge: patient is back to baseline Time Spent with Patient Time attestation: Total time managing care of this patient today ____ minutes. Discharge coordination time: Less than 30 minutes Quality: Safe Use of Opioids Does Pt have an Active Cancer Diagnosis on the Problem List?: No Quality: Stroke Does the patient have a stroke diagnosis?: No Physical Exam Vital Signs: Vital Signs: Last Vital Signs Temp 96.9 F 10/01/22 07:03 Pulse 72 10/01/22 07:03 Resp 18 10/01/22 07:03 BP 164/77 H 10/01/22 07:03 Pulse Ox 94 10/01/22 07:03 O2 Del Method 10/01/22 07:03 O2 Flow Rate 2 09/29/22 11:00 BMI result Body Mass Index 37.3 Const: General: comfortable, no acute distress and alert Orientation/consciousness: patient oriented x3 Resp: Effort & Inspection: normal respiratory effort Cardio: Rate: regular rate GI: Inspection: No distended and Yes incision (dressings c/d/i) Palpation (GI): Soft to palpation, Tenderness to palpation present (GI) (mild, left port site), no guarding and not rigid Percussion: Yes normal to percussion Skin: General skin exam: no rashes or lesions noted Neuro: General: patient oriented x3 and moves all extremities Extrem: General: Yes no clubbing, cyanosis or edema DS: Data Data Completed and Pending Completed studies during hospitalization [Text1]: 09/29/22 10:03 Surgical [PTH] Routine Vermiform appendix, appendectomy:? Acute appendicitis and periappendicitis. Labs on day of discharge: Preliminary micro results at discharge 09/28/22 18:33 Blood Culture - Preliminary Blood - Venous No growth after 48 hours. 09/28/22 18:29 Blood Culture - Preliminary Blood - Venous No growth after 48 hours. Discharge Plan Discharge Anticipated Discharge Date/Time: 09/30/22 12:32 Patient Disposition: Home, Self-Care Discharge Diagnosis: acute appendicitis, s/p laparoscopic appendectomy Referrals: Gallo Grant MD [Physician] - 2 Weeks Physician,Brielle Yung [Primary Care Provider] - 1 Week Discharge Medications: New oxycodone 5 mg tablet 5 mg PO Q4H PRN (Reason: pain (scale score 7-10)) Qty: 24 0RF Rx Instructions: Partial Fill upon patient request. Continued metformin 500 mg tablet 1 tab PO BID losartan 25 mg tablet 1 tab PO DAILY Discharge Orders: Discharge Order (Routine); Ordered 10/01/22 Ordered By: Audra Reynaga Diet: Diabetic diet Activity on Discharge: No heavy lifting Stand Alone Forms: Patient Portal Discharge page Activity Restrictions/Additional Instructions: If the incision area is tender, you may apply an ice pack for short intervals (No more than 20 minutes on, followed by at least 20 minutes off). Do not apply heat. Do not use creams, lotions, or topical antibiotics unless instructed to do so by your surgeon. These can cause infection or allergic reaction. Ok to shower. Remove clear dressings 3 days following your procedure. You have steri strips (small white cloth strips) covering your incision- these will fall off ~1 week. No heavy lifting (>10lbs) or strenuous activity! Follow up in office with Dr. Grant 1-2 weeks. [phone] Call Your Doctor If: -Your temperature exceeds 101.5? F -You experience excessive pain or swelling -You have an unexpected reaction to medication -You have excessive bleeding -You experience continued vomiting/nausea -Your incision begins to separate -Your incision shows signs of infection such as increased redness, swelling, excessive pain, drainage (light blood or clear fluid is normal) or heat Care Plan Goals: Return to baseline health and gradual return to activity following recovery period. Health Concerns: acute appendicitis diabetes mellitus hypertension Plan of Treatment: s/p lap appy f/u in office with your PCP Assessment: Doing well post op. Discharge Date/Time: 10/01/22 08:50
== END 2022-10-01 08:50 | disposition home or self-care (01) | DRG 233 ==
LOC: HO.ED 20:41 → HO.EDOVER 20:53 → HO.S3 09-29 08:09
PROVIDERS: Physician Assistant; Admitting Provider Surgery; Emergency Provider Emergency Medicine Emergency Medical Services; Visit Provider Surgery
PROC: 0DTJ4ZZ Resection of Appendix, Percutaneous Endoscopic Approach (ICD-10-PCS; CPT 44970; principal; 2022-09-29 08:30)
DX: K35.33 Acute appendicitis with perforation, localized peritonitis, and gangrene, with abscess (principal); E11.9 Type 2 diabetes mellitus without complications; E66.9 Obesity, unspecified; Z20.822 Contact with and (suspected) exposure to COVID-19; Z68.37 Body mass index [BMI] 37.0-37.9, adult; Z88.1 Allergy status to other antibiotic agents; Z79.84 Long term (current) use of oral hypoglycemic drugs; Z79.899 Other long term (current) drug therapy
CPT/HCPCS: 44970; 36415; 74177; 80048; 81003; 82947; 83605; 83690; 85025; 85027; 87040; 87635; 88304; 99285; J0131; J1100; J1170; J1200; J1956; J2250; J2270; J2405; J2543; J2795; J3010; Q9967

== ENCOUNTER 2024-10-01 16:27 | Emergency (ER) | payer MEDICAID, SELFPAY ==
--- OUTSIDE RECORDS SUMMARY | 2024-10-01 16:30 | XMS_ITS | Data Portability ---
Author Organization [place] [facility], [place], [facility] Address [address] [place] [address] Assessment Encounter Date Assessment Date Assessment LastModified by Organization Details LastModified Time 01/27/2016 01/27/2016 46 yM with c/o polyuria, polydipsia, intermittent dysuria over the last year. ??Family hx of diabetes (mother) A/P Urinary frequency with glycosuria Will obtain UA/Cx. ??UA show ??+glucosuria, No Ketonuria. ??FS 97. ??Discussed with pt the need for annual blood work/HGA1C with PMD this week given family history, ??increased BMI, & poor diet. ??Pt also reports high blood sugar measurement at a local pharmacy earlier this year. ? Discussed with pt the need for lifestyle modification, exercise, weight loss, diet changes and close follow up with pmd. Pt agrees and will follow up with pmd this week. ??Pt also Pt ??will follow up with urology if persist urinary symptoms persist. Follow up urine Cultures. [email or web address] Not available 01/27/2016 14:34:56 Plan of Treatment Reminders Order Date Submit Date Provider Last Modified By Organization Details Last Modified Time Details Appointments None recorded. Lab urinalysis, dipstick 2015 016 [email or web address] n2 In-House Results, For Internal Use Only, Do Not Delete/merge, [id number] 12:14:38 glucose, fasting, fingerstick , blood (point of care) 2015 016 [email or web address] n2 Not available 6 14:37:20 culture, urine + sensitivity 04/09/ 2016 04/09/2 016 [email or web address] n2 Not available 6 15:01:37 urinalysis, dipstick 2015 Ester tobias In-House Results, For Internal Use Only, Do Not Delete/merge, [id number] 6 19:06:54 Referral primary care provider referral 2015 016 [email or web address] n2 Not available 6 10:01:21 urologist referral 2015 016 [email or web address] n2 Not available 6 10:01:21 Procedures None recorded. Surgeries None recorded. Imaging None recorded. Medication Orders None recorded. Patient TargetsNo targets recorded. Patient Instructions Encounter Date Encounter Id Patient Instructions Last Modified By Organization Details Last Modified Time 01/27/2016 [id number] Based on your symptoms and urine test, you need to follow up with your PCP for further evaluation. ??You need annual blood work, including a test for diabetes. ??If your urinary symptoms persist, please follow up with Urology. [email or web address] Not available 01/27/2016 12:54:00 Reason for Referral Primary Care Provider Referr al for Urinary symptoms Referring Physician: [facility], Encounter Date: 01/27/2016 Urologist Referral for Urina ry symptoms Referring Physician: [facility], Encounter Date: 01/27/2016 Results Created Date Observation Date Name Description Value Unit Range Abnormal Flag Note LastModifiedBy Organization Detail LastModifiedTime 01/27/2016 urina lysis , dipst ick Leukocytes Negati ve Not Available In-House Results For Internal Use Only, Do Not Delete/merge, [id number] 01/27/2016 13:51:43 01/27/2016 urina lysis , dipst ick Nitrates negati ve Not Available In-House Results For Internal Use Only, Do Not Delete/merge, [id number] 01/27/2016 13:51:43 01/27/2016 urina lysis , dipst ick Urobilinogen 0.2 Not Available In-Ho use Results For Internal Use Only, Do Not Delete/merge, [id number] 01/27/2016 13:51:43 01/27/2016 urina lysis , dipst ick Protein Negati ve Not Available In-House Results For Internal Use Only, Do Not Delete/merge, 01/27/2016 13:51:43 01/27/2016 urina lysis , dipst ick pH 5.0 Not Available In-House Results For Internal Use Only, Do Not Delete/merge, 01/27/2016 13:51:43 01/27/2016 urina lysis , dipst ick Blood Negati ve Not Available In-House Results For Internal Use Only, Do Not Delete/merge, 01/27/2016 13:51:43 01/27/2016 urina lysis , dipst ick Specific [place] 1.030 Not Available In-Kim se Results For Internal Use Only, Do Not Delete/merge, 01/27/2016 13:51:43 01/27/2016 urina lysis , dipst ick Ketone Negati ve Not Available In-House Results For Internal Use Only, Do Not Delete/merge, 01/27/2016 13:51:43 01/27/2016 urina lysis , dipst ick Bilirubin Negati ve Not Available In-House Results For Internal Use Only, Do Not Delete/merge, 01/27/2016 13:51:43 01/27/2016 urina lysis , dipst ick Glucose 100 Not Available In-House Results For Internal Use Only, Do Not Delete/merge, 01/27/2016 13:51:43 01/27/2016 urina lysis , dipst ick Test Strip lot # [id number] Not Available In-Kim se Results For Internal Use Only, Do Not Delete/merge, 01/27/2016 13:51:43 01/27/2016 urina lysis , dipst ick Test strip Expiration date 2015 Not Available In-House Results For Internal Use Only, Do Not Delete/merge, 01/27/2016 13:51:43 Result Notes None recorded. Problems Name Problem SNOMED Code Status Onset Date Resolution Date Notes Provider Name and Address Organization Details Recorded Time Urinary symptoms 659558347 Active [facility], [place] 6 19:06:54 Glycosuria 15871960 Active [facility], [place] 6 19:06:54 Problem Notes None recorded. Medical Equipment None Reported. Allergies No known drug allergies Medications Not known to be on any medication Vitals Date Recorded Body mass index (BMI) Body weight Body height Oxygen saturation Oxygen saturation in Arterial blood by Pulse oximetry Heart rate Body temperature Systolic blood pressure Diastolic blood pressure Provider Name and Address Organization Details Last Updated DateTime 6 0.2 kg/m2 560179 g 2133.6 cm 98 % 98 % 57 /min 98.3 [degF] 135 mm[Hg] 70 mm[Hg] Wilma GRIFFITHS [facility] [place] 6 12:06:57 Social History Question Answer Notes LastModified by Organizat ion Details LastModified Time Tobacco Smoking Status Never Smoker TUNDE Tineo [facility] [place] 01/27/2016 12:04:48 What Is Your Level Of Alcohol Consumption? None [email or web address] Information not available 01/27/2016 Sex: Unknown Functional Status None recorded. Mental Status None recorded. Family History Nothing Reported Notes:MOTHER (DIABETES) Medical History Condition Response Pancreatitis N HIV N Coronary Artery Disease N Gout N Kidney Stones N Hyperthyroidism N Gallstones N Abdominal Aortic Aneurysm N Glaucoma N Depression N COPD N Hypothyroidism N Pneumonia N Back Pain N Heart Attack (ND) N Frequent UTIs N Deep Vein Thrombosis N Anxiety Disorder N Diabetes N Chronic Headaches N Arthritis N Seizure N Tuberculosis N Inflammatory Bowel Disease N BPH N Cancer N Diverticulitis N Dementia N Asthma N Stroke/TIA N High Cholesterol N GERD/Reflux N Hepatitis N Cirrhosis N Heart Disease N Arrhythmia N Pulmonary Embolism N Fibromyalgia N Hypertension N Osteoporosis N Seasonal/Environmental Allergies N Kidney Disease N Past Encounters Encounter ID Performer Location Encounter Start Date Encounter Closed Date Diagnosis/Indication Diagnosis SNOMED-CT Code Diagnosis ICD10 Code [id number] [place] [facility] [address] [place] [address] 01/27/2016 11:53:24 01/27/2016 19:11:53 Urinary symptoms 729103507 R39.9 Glycosuria 07699295 R81 Health Concerns Section Related Observation LastModified by Organization Detai ls LastModified Time None Recorded Concern Status LastModified by Organization Details LastModified Time None Recorded Advance Directives Directive None Recorded Payers Encounter Date Sequence Insurance Name Policy Number Policy Gr Covered Member ID Gr Member ID Guarantor Name 01/27/2016 1 [place] Driss Hicks [id number] Driss Hicks Notes Date Note Type Note Provider Name and Address Organization Details Recorded Time 01/27/2016 text/html problems-MaleRepor fantasma bypatient.Severity :mild Duration:symptoms lasting over 2 weeks Context:, no extramarital sex Associated Symptoms:no penile lesions/sores; no scrotal lesions/sores; no penile discharge; no flank pain; no jaundice; no blood in the urine; no pain during urination; no impotence c/o burning with urination and increased urination on and off x 1 year [facility] 01/27/2016 19:06:55
--- NOTE | 2024-10-01 16:31 | ECG_ITS ---
Test Reason : cp Blood Pressure : / mmHG Vent. Rate : 067 BPM Atrial Rate : 067 BPM P-R Int : 196 ms QRS Dur : 094 ms QT Int : 406 ms P-R-T Axes : 024 066 041 degrees QTc Int : 429 ms Normal sinus rhythm Normal ECG No previous ECGs available Referred By: Fam Ramirez Electronically Signed By:JAIR FIERRO MD
[2024-10-01 16:47] VITALS: BP 175/89; PULSE 77; RESP 19; TEMP 36.6; O2SAT 98; BMI 32.9
--- NOTE | 2024-10-01 16:56 | ED.CHESTPAIN ---
HPI - Chest Pain General Chief Complaint: Chest Pain Stated Complaint: Chest pain, HBP Related Data Home Medications ?Medication ?Instructions ?Recorded ?Confirmed losartan 25 mg tablet 1 tab PO DAILY 09/29/22 09/29/22 metformin 500 mg tablet 1 tab PO BID 09/29/22 09/29/22 Previous Rx's ?Medication ?Instructions ?Recorded oxycodone 5 mg tablet 5 mg PO Q4H PRN pain (scale score 10/01/22 7-10) #24 tabs Allergies Allergy/AdvReac Type Severity Reaction Status Date / Time piperacillin Allergy Mild Rash Verified 10/01/24 16:49 Zosyn Allergy Mild Rash Uncoded 10/01/24 16:49 PMFSH Past Medical History Medical History Diabetes mellitus type 2 in nonobese Hypertension Surgical History (Updated 10/09/22 @ 00:02 by Monique Quinn) S/P laparoscopic appendectomy Social History Social History Household Members: Family Housing: House Do you presently have visiting nurse or other home services: No Alcohol intake: never Patient Tobacco Use Status: Never used Tobacco Do you have a plan to hurt others: No Plan service: Yes Current occupational status: unemployed Physical Exam Vital Signs: Vital Signs: Last Vital Signs Temp 98 F 10/01/24 16:47 Pulse 77 10/01/24 16:47 Resp 19 10/01/24 16:47 BP 175/89 H 10/01/24 16:47 Pulse Ox 98 10/01/24 16:47 O2 Del Method Room Air 10/01/24 16:47 BMI result Body Mass Index 32.9 Course Course Course Narrative: RME, this is a rapid medical exam performed by Montrell Ramirez please refer to primary provider for complete H&P- 54-year-old male with history of hypertension and diabetes presents for evaluation of chest pain that started yesterday. Today he has felt lightheaded. Plan for cardiac workup. The patient is emotionally labile in triage. Discharge Plan Discharge Prescriptions: No Action metformin 500 mg tablet 1 tab PO BID losartan 25 mg tablet 1 tab PO DAILY oxycodone 5 mg tablet 5 mg PO Q4H PRN (Reason: pain (scale score 7-10)) Qty: 24 0RF Rx Instructions: Partial Fill upon patient request. Print Language: Dominican
[2024-10-01 19:03] LABS: MANUAL DIFF FLAG NO
[2024-10-01 19:08] LABS: Basophils Percent Auto 0.3 % (0-2); Eosinophils Absolute Auto 0.1 X10*3/uL (0.0-0.4); Hematocrit 44.8 % (42.0-52.0); Hemoglobin 15.3 g/dl (14.0-18.0); Imm Gran Abs Auto 0.02 X10*3/uL (0.00-0.03); Imm Gran Pct Auto 0.2 % (0.0-0.4); Lymphocytes Percent Auto 21.9 % (20-40); Mean Corpuscular HGB Conc 34.2 g/dl (31.0-36.0); Mean Corpuscular Hemoglobin 28.7 pg (27.0-33.0); Mean Corpuscular Volume 84.1 fL (80.0-98.0); Mean Platelet Volume 9.6 fL (9.4-12.4); Monocytes Absolute Auto 0.6 X10*3/uL (0.1-1.2); Monocytes Percent Auto 6.5 % (2-11); Neutrophils Absolute Auto 6.5 x10*3/uL (2.0-8.3); Neutrophils Percent Auto 70.1 % (45-73); Platelet Count 277 X10*3/uL (160-400); Red Blood Count 5.33 X10*6/uL (4.60-5.80); Red Cell Distribution Width 12.4 % (11.0-16.0); White Blood Count 9.2 X10*3/uL (4.8-10.8)
[2024-10-01 19:13] LABS: INTERNATIONAL NORM RATIO 1.1 (0.9-1.1); Prothrombin Time 12.5 SEC (10.9-12.4)
[2024-10-01 19:18] LABS: Ethanol < 10 mg/dL
[2024-10-01 19:29] LABS: Troponin-I High Sensitivity 3.2 ng/L (<3.5-35.0)
[2024-10-01 19:32] LABS: Alanine Aminotransferase 25 U/L (0-40); Albumin Level 4.2 g/dL (3.5-5.0); Alkaline Phosphatase 80 U/L (39-117); Anion Gap 14 (12-20); Aspartate Amino Transferase 21 U/L (5-37); Bilirubin Total 0.8 mg/dL (0.0-1.0); Blood Urea Nitrogen 17 mg/dL (9-16); Calcium 9.3 mg/dL (8.4-10.2); Carbon Dioxide 25 mmol/L (22-29); Chloride 106 mmol/L (96-108); Creatinine Clr Calc Pharmacy 102.1; Estimated Glomerular Filt Rate > 60; Glucose Random 193 mg/dL (60-115); Lipase 27 U/L (8-78); Magnesium 2.1 mg/dL (1.6-2.6); Potassium 3.7 mmol/L (3.3-5.1); Sodium 141 mmol/L (135-145); Total Protein 7.2 g/dL (6.5-8.0)
== END 2024-10-01 21:53 | disposition left against medical advice (07) ==
PROVIDERS: Physician Assistant; Emergency Provider Internal Medicine
DX: R07.9 Chest pain, unspecified (principal); I10 Essential (primary) hypertension; E11.9 Type 2 diabetes mellitus without complications; Z53.21 Procedure and treatment not carried out due to patient leaving prior to being seen by health care provider
CPT/HCPCS: 36415; 80053; 80307; 83690; 83735; 84484; 85025; 85610; 93005; 99281; 99283

== ENCOUNTER → 2024-10-01 16:31 | Outpatient (BNV) | payer SELFPAY | PROVIDERS: Emergency Provider Internal Medicine; Visit Provider Internal Medicine Cardiovascular Disease | DX: R07.9 Chest pain, unspecified (principal) | CPT/HCPCS: 93010 ==